=== PATIENT | male | born 1945 | race Hispanic/Latino ===

== ENCOUNTER 2017-08-10 19:18 | Emergency (ER) | payer OTHER, MEDICARE ==
[2017-08-10 19:35] VITALS: RESP 18; TEMP 97.6; O2SAT 98
[2017-08-10 19:39] VITALS: BMI 30.4
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
[2017-08-10] MEDS ORDERED: TDAP Vaccine 0.5 mL Syr IM ONE (20:38)
[2017-08-10 21:45] LABS: INR 1.14 (0.93-1.08); PARTIAL THROMBOPLASTIN TIME 36.3 Seconds (25.1-36.5)
[2017-08-10] MEDS ORDERED: Oxycodone/Acetaminophen 5/325 mg Tab PO STA (23:04)
[2017-08-10 23:26] VITALS: BP 153/88; PULSE 90
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
== END 2017-08-10 23:42 | disposition home or self-care (01) ==
LOC: ED 19:18
DX: S09.90XA Unspecified injury of head, initial encounter (principal); S96.911A Strain of unspecified muscle and tendon at ankle and foot level, right foot, initial encounter; S00.81XA Abrasion of other part of head, initial encounter; S80.211A Abrasion, right knee, initial encounter; T14.8XXA Other injury of unspecified body region, initial encounter; V49.9XXA Car occupant (driver) (passenger) injured in unspecified traffic accident, initial encounter; Y92.410 Unspecified street and highway as the place of occurrence of the external cause; Z23 Encounter for immunization